=== PATIENT | female | born 1950 | race Caucasian/White ===

== ENCOUNTER 2020-11-05 14:32 | Emergency (ER) | payer MEDICARE ==
--- NOTE | 2020-11-05 15:18 | EDM.PDOC ---
ED HPI GENERAL MEDICAL PROBLEM - General Chief Complaint: Skin Complaint Stated Complaint: BEE BITE LEFT ARM Time Seen by Provider: 11/05/20 15:05 Source of Information: Reports: Patient History Limitations: Reports: No Limitations - History of Present Illness INITIAL COMMENTS - FREE TEXT/NARRATIVE: 70 yo female was stung on the L hand yesterday. Since then has had gradually mo re redness and swelling going now up proximally past her wrist. No hx of the same. Has been doing Benedryl 50 mg every 5 hrs and applying cold occasionally. No fever or chills. Some localized itching. Onset: Gradual Onset Date: 11/04/20 Duration: Day(s): (1+), Getting Worse Location: Reports: Upper Extremity, Left Quality: Reports: Dull, Other (itching) Severity: Mild Improves with: Reports: None Worsens with: Reports: Other (time) Context: Reports: Other (bee sting) Associated Symptoms: Reports: No Other Symptoms Treatments SENIOR SECURITY ARCHITECT: Reports: Other (see below) (Benedryl) - Related Data Allergies Allergy/AdvReac Type Severity Reaction Status Date / Time No Known Allergies Allergy Verified 11/05/20 15:04 Home Meds: Home Meds Ascorbic Acid [Vitamin C] 1,000 mg PO DAILY 06/01/20 [History] Calcium Carbonate [Calcium] 500 mg PO DAILY 06/01/20 [History] Cholecalciferol (Vitamin D3) [Vitamin D] 5,000 unit PO DAILY 06/01/20 [History] Ferrous Sulfate 324 mg PO DAILY 06/01/20 [History] Garlic 1,000 mg PO DAILY 06/01/20 [History] Magnesium 250 mg PO DAILY 06/01/20 [History] Raloxifene [Evista] 60 mg PO DAILY 06/01/20 [History] Turmeric 400 mg PO DAILY 11/05/20 [History] Past Medical History Musculoskeletal History: Reports: Other (See Below) Other Musculoskeletal History: right shoulder pain. left knee pain - Past Surgical History Musculoskeletal Surgical History: Reports: None ED ROS GENERAL - Review of Systems Review Of Systems: See Below Constitutional: Reports: No Symptoms HEENT: Reports: No Symptoms Respiratory: Reports: No Symptoms Cardiovascular: Reports: No Symptoms Skin: Reports: Pruritis, Erythema (and induration of L hand/wrist and distal forearm). Denies: Rash, Wound Neurological: Reports: No Symptoms ED EXAM, SKIN/RASH Exam: See Below Exam Limited By: No Limitations General Appearance: Alert, WD/WN, No Apparent Distress Eye Exam: Bilateral Eye: Normal Inspection Ears: Normal External Exam, Normal Canal, Hearing Grossly Normal Nose: Normal Inspection, No Blood Throat/Mouth: Normal Inspection, Normal Lips, Normal Oropharynx, Normal Voice, No Airway Compromise Head: Atraumatic, Normocephalic Neck: Normal Inspection Respiratory/Chest: No Respiratory Distress, Lungs Clear, Normal Breath Sounds, No Accessory Muscle Use Cardiovascular: Regular Rate, Rhythm, No Edema Extremities: Pedal Edema (L hand slightly swollen). No: No Pedal Edema Neurological: Alert, Oriented, CN II-XII Intact, Normal Cognition, No Motor/Sensory Deficits Psychiatric: Normal Affect, Normal Mood Skin: Warm, Dry, Intact, No Rash, Erythema (pinkish red L hand/wrist and distal forearm. ), Increased Warmth (slight increase in temp locally only). No: Lymphangitis, Zoster-Like Rash Location, Skin: Upper Extremity, Left Characteristics: Confluent, Erythematous Associated features: Warmth, Induration. No: Tenderness, Lymphangitis Course - Vital Signs Last Recorded V/S: Last Vital Signs Temp 36.3 C 11/05/20 15:07 Pulse 78 11/05/20 15:07 Resp 20 11/05/20 15:07 BP 129/89 11/05/20 15:07 Pulse Ox 100 11/05/20 15:07 - Orders/Labs/Meds Labs: Laboratory Tests 11/05/20 Range/Units 15:17 WBC 8.1 (4.5-11.0) K/uL RBC 4.69 (3.30-5.50) M/uL Hgb 14.0 (12.0-15.0) g/dL Hct 42.8 (36.0-48.0) % MCV 91 (80-98) fL MCH 30 (27-31) pg MCHC 33 (32-36) % Plt Count 223 (150-400) K/uL Departure - Departure Time of Disposition: 15:36 Disposition: Home, Self-Care 01 Condition: Good Clinical Impression: Local reaction to bee sting Qualifiers: Encounter type: initial encounter Injury intent: accidental or unintentional Qualified Code(s): T63.441A - Toxic effect of venom of bees, accidental (unintentional), initial encounter - Discharge Information *PRESCRIPTION DRUG MONITORING PROGRAM REVIEWED*: Not Applicable *COPY OF PRESCRIPTION DRUG MONITORING REPORT IN PATIENT DANIEL: Not Applicable Instructions: Bee, Wasp, or Hornet Sting, Adult Referrals: José Sigala MD [Primary Care Provider] - Forms: ED Department Discharge Additional Instructions: Diphenhydramine 50 mg every 4 hrs. Elevate above your heart. Cold compresses. Avoid scratching. Recheck for fever, temp > 100.2 F. Sepsis Event Note (ED) - Focused Exam Vital Signs: Vital Signs Temp Pulse Resp BP Pulse Ox 11/05/20 15:07 36.3 C 78 20 129/89 100
== END 2020-11-05 16:00 | disposition home or self-care (01) ==
LOC: JP.ED 14:32
DX: T63.441A Toxic effect of venom of bees, accidental (unintentional), initial encounter (principal); R60.0 Localized edema
CPT/HCPCS: 36415; 85027; 99283

== ENCOUNTER 2020-12-22 06:25 | Day surgery (SDC) | payer MEDICARE ==
[2020-12-22] MEDS ORDERED: Sodium Chloride 0.9% 1,000 ML IV SCH (07:00)
[2020-12-22] MEDS ORDERED: fentaNYL 100 MCG/2 ML SDV ONE (07:15)
[2020-12-22] MEDS ORDERED: Propofol 200 MG/20 ML SDV ONE (07:15)
[2020-12-22] MEDS ORDERED: Midazolam 1 MG/ML 2 ML SDV ONE (07:15)
--- NOTE | 2020-12-22 09:03 | OR ---
DATE OF PROCEDURE: 12/22/2020 SURGEON: Magnus Vernon MD PROCEDURE: Colonoscopy. FINDINGS: 1. Sigmoid colon polyp, approximately 5 mm, completely removed using cold biopsy forceps. 2. Diverticulosis, mild. COMPLICATIONS: None. MACHINE DESIGNER: None. ANESTHESIA: MAC. PREOPERATIVE DIAGNOSIS: Screening colonoscopy. POSTOPERATIVE DIAGNOSIS: Screening colonoscopy. RISKS: Risks, benefits, alternatives, and limitations including, but not limited to infection, bleeding, perforation, false positive, false negatives were explained to the patient and she wished to proceed. PROCEDURE IN DETAIL: The patient was placed in left lateral decubitus position. Digital rectal exam was performed without abnormality. Scope was introduced and advanced atraumatically to the ileocecal valve. A photo was taken of the appendiceal orifice. Scope was brought back to the ascending, transverse, descending colon, and retroflexed. The aforementioned polyp was identified and completely removed. The diverticulosis was described as mild, limited to sigmoid colon without evidence of diverticulitis or bleeding. No abnormalities on retroflexion. Greater than 8 minutes was spent removing the scope. The prep was acceptable, approximately 90% of the luminal surface could be seen. The patient tolerated the procedure well. Magnus Vernon MD /[id number]
== END 2020-12-22 10:00 | disposition home or self-care (01) ==
LOC: JP.SDS 06:25
PROVIDERS: ATTEND Surgery
DX: Z12.11 Encounter for screening for malignant neoplasm of colon (principal); K63.5 Polyp of colon; K57.30 Diverticulosis of large intestine without perforation or abscess without bleeding
CPT/HCPCS: 45380; J2250; J2704; J3010; J7030

== ENCOUNTER 2022-03-30 22:39 | Emergency (ER) | payer MEDICARE | END 2022-03-31 00:02 | disposition home or self-care (01) | LOC: JP.ED 22:39 | DX: H81.10 Benign paroxysmal vertigo, unspecified ear (principal); M81.0 Age-related osteoporosis without current pathological fracture; Z79.899 Other long term (current) drug therapy | CPT/HCPCS: 99283 ==

== ENCOUNTER 2024-04-25 17:52 | Emergency (ER) | payer MEDICARE ==
[2024-04-25 18:29] LABS: BASOPHILS ABSOLUTE AUTO 0.04 K/uL (0.00-0.10); BASOPHILS PERCENT AUTO 0.2 % (0.1-1.3); EOSINOPHILS ABSOLUTE AUTO 0.07 K/uL (0.00-0.40); EOSINOPHILS PERCENT AUTO 0.4 % (0.0-5.4); HEMATOCRIT 43.5 % (34.3-46.0); HEMOGLOBIN 14.6 g/dL (11.2-15.5); IMMATURE GRAN ABSOLUTE AUTO 0.08 K/uL (0.00-0.23); IMMATURE GRAN PERCENT AUTO 0.5 % (0.0-0.7); LYMPHOCYTES ABSOLUTE AUTO 2.11 K/uL (0.8-3.3); LYMPHOCYTES PERCENT AUTO 12.7 % (11.4-47.7); MEAN CORPUSCULAR HEMOGLOBIN 31.3 pg (31.6-35.5); MEAN CORPUSCULAR HGB CONC 33.6 g/dL (31.6-35.5); MEAN CORPUSCULAR VOLUME 93.1 fL (81.4-99.0); MONOCYTES ABSOLUTE AUTO 1.12 K/uL (0.20-0.90); MONOCYTES PERCENT AUTO 6.7 % (3.3-12.6); NEUTROPHILS ABSOLUTE AUTO 13.19 K/uL (1.0-7.6); NEUTROPHILS PERCENT AUTO 79.5 % (40.0-78.1); PLATELET COUNT,PLT 238 K/uL (130-375); RED BLOOD CELL COUNT 4.67 M/uL (3.77-5.24); WHITE BLOOD CELL COUNT,WBC 16.6 K/uL (3.2-11.0)
[2024-04-25 18:50] LABS: ALANINE AMINOTRANSFERASE,ALT 33 U/L (12-78); ALBUMIN 3.9 g/dL (3.4-5.0); ALKALINE PHOSPHATASE 79 U/L (46-116); ASPARTATE AMNIOTRANSFERASE,AST 24 U/L (15-37); BILIRUBIN TOTAL 0.3 mg/dL (0.2-1.0); BLOOD UREA NITROGEN,BUN 21 mg/dL (7-18); CARBON DIOXIDE,CO2 25 mmol/L (21-32); CHLORIDE,CL 102 mmol/L (100-108); EST CRCL DRUG DOSING (CG) 49.45 mL/min; ESTIMATED GFR 60 mL/min (>60); GLUCOSE RANDOM 109 mg/dL (74-106); POTASSIUM,K 3.8 mmol/L (3.6-5.2); PROTEIN TOTAL,TP 7.7 g/dL (6.4-8.2); SODIUM,NA 138 mmol/L (140-148)
[2024-04-25 18:52] LABS: ANION GAP 14.8 mmol/L (5.0-14.0)
[2024-04-25] MEDS: Ondansetron 4 MG/2 ML SDV IVPUSH ONE (19:00)
[2024-04-25] MEDS: Sodium Chloride 0.9% 1,000 ML IV STA (19:00)
== END 2024-04-25 20:09 | disposition home or self-care (01) ==
LOC: JP.ED 17:52
DX: K52.9 Noninfective gastroenteritis and colitis, unspecified (principal); Z86.16 Personal history of COVID-19; Z90.710 Acquired absence of both cervix and uterus; Z79.899 Other long term (current) drug therapy
CPT/HCPCS: 36415; 80053; 85025; 93005; 96361; 96374; 99285; J2405; J7030

== ENCOUNTER 2024-05-27 09:05 | Inpatient (IN) | payer MEDICARE ==
[2024-05-27] MEDS: Lactated Ringers 1,000 ML IV SCH (09:42)
[2024-05-27] MEDS: Nozin Nasal Sanitizer NASBOTH SCH (09:43)
[2024-05-27 10:27] LABS: BASOPHILS PERCENT AUTO 0.4 % (0.1-1.3); EOSINOPHILS ABSOLUTE AUTO 0.08 K/uL (0.00-0.40); EOSINOPHILS PERCENT AUTO 1.5 % (0.0-5.4); HEMATOCRIT 37.6 % (34.3-46.0); HEMOGLOBIN 12.5 g/dL (11.2-15.5); IMMATURE GRAN PERCENT AUTO 0.2 % (0.0-0.7); LYMPHOCYTES ABSOLUTE AUTO 2.12 K/uL (0.8-3.3); LYMPHOCYTES PERCENT AUTO 40.2 % (11.4-47.7); MEAN CORPUSCULAR HEMOGLOBIN 30.9 pg (31.6-35.5); MEAN CORPUSCULAR HGB CONC 33.2 g/dL (31.6-35.5); MEAN CORPUSCULAR VOLUME 92.8 fL (81.4-99.0); MONOCYTES ABSOLUTE AUTO 0.42 K/uL (0.20-0.90); NEUTROPHILS ABSOLUTE AUTO 2.62 K/uL (1.0-7.6); NEUTROPHILS PERCENT AUTO 49.7 % (40.0-78.1); PLATELET COUNT,PLT 200 K/uL (130-375); RED BLOOD CELL COUNT 4.05 M/uL (3.77-5.24); WHITE BLOOD CELL COUNT,WBC 5.3 K/uL (3.2-11.0)
[2024-05-27 10:31] LABS: BASOPHILS ABSOLUTE AUTO 0.02 K/uL (0.00-0.10); IMMATURE GRAN ABSOLUTE AUTO 0.01 K/uL (0.00-0.23)
[2024-05-27 10:41] LABS: ANION GAP 8.3 mmol/L (5.0-14.0); CALCIUM 8.7 mg/dL (8.5-10.1); CREATININE 0.7 mg/dL (0.6-1.0); EST CRCL DRUG DOSING (CG) 69.33 mL/min; POTASSIUM,K 3.8 mmol/L (3.6-5.2)
[2024-05-27] MEDS ORDERED: fentaNYL 100 MCG/2 ML SDV ONE (11:08)
[2024-05-27] MEDS ORDERED: Propofol 200 MG/20 ML SDV ONE ×2 (11:08→15:18)
[2024-05-27] MEDS ORDERED: Midazolam 1 MG/ML 2 ML SDV ONE (11:08)
[2024-05-27] MEDS ORDERED: Magnesium Hydroxide 400 MG/5 ML Susp 30 ML Cup PO PRN (12:34)
[2024-05-27] MEDS ORDERED: Morphine 2 MG/ML SYRINGE IVPUSH PRN (12:34)
[2024-05-27] MEDS ORDERED: Ondansetron 4 MG/2 ML SDV IVPUSH PRN (12:34)
[2024-05-27] MEDS: ceFAZolin 2 GM in Premix Bag 1 BAG IV ONE (14:50)
[2024-05-27] MEDS: Tranexamic Acid 820 MG in Sodium Chloride 0.9% 50 ML IV ONE (15:15)
[2024-05-27] MEDS: Bupivacaine 0.5% 50 ML MDV ONE (15:36)
[2024-05-27] MEDS: Acetaminophen 325 MG Tab PO SCH (17:31)
[2024-05-27] MEDS: oxyCODONE 5 MG Tab PO PRN (17:54)
[2024-05-27] MEDS: Sodium Chloride 0.9% 1,000 ML IV SCH (17:55)
[2024-05-27] MEDS: Ketorolac 30 MG/ML SDV IVPUSH PRN (18:16)
[2024-05-27] MEDS: Ondansetron 4 MG Tab.DIS PO PRN (20:54)
[2024-05-27] MEDS ORDERED: Nozin Nasal Sanitizer NASBOTH SCH (21:00)
[2024-05-27] MEDS: ceFAZolin 2 GM in Premix Bag 1 BAG IV SCH (22:28)
[2024-05-28] MEDS: oxyCODONE 5 MG Tab PO PRN (00:28)
[2024-05-28] MEDS: Cyanocobalamin (Vitamin B12) 1,000 MCG Tab PO SCH (08:07)
[2024-05-28] MEDS: Vitamin B Complex Tab PO SCH (08:07)
[2024-05-28] MEDS: Multivitamins with Iron/Calcium/Folic Acid/Minerals Tab PO SCH (08:07)
[2024-05-28] MEDS: Aspirin 325 MG Tab.EC PO SCH (08:07)
[2024-05-28] MEDS: Magnesium Oxide 400 MG Tab PO SCH (08:07)
[2024-05-28] MEDS: Raloxifene 60 MG Tab PO SCH (08:07)
[2024-05-28] MEDS: Calcium Carbonate 500 MG Tab.Chew PO SCH (08:07)
[2024-05-28] MEDS ORDERED: Non-Formulary Medication 1 Each (Glucosam/Chond-Msm1/C/Mang/Bor [Glucosa-Chond-Msm Complex PO SCH (09:00)
[2024-05-28] MEDS ORDERED: Non-Formulary Medication 1 Each (Turmeric [Turmeric] 400 MG Capsule) PO SCH (09:00)
[2024-05-28] MEDS: Diphtheria,Pertussis(Acell),Tetanus Vaccine 0.5 ML Syringe IM ONE (09:44)
[2024-05-28] MEDS: Sodium Chloride 0.9% 500 ML IV ONE (09:50)
[2024-05-28 10:01] LABS: HEMATOCRIT 33.6 % (34.3-46.0); HEMOGLOBIN 11.1 g/dL (11.2-15.5)
[2024-05-28] MEDS: Docusate Sodium 100 MG Cap PO PRN (23:03)
== END 2024-05-29 10:44 | disposition home or self-care (01) | DRG 470 ==
LOC: JP.SDS 09:05 → JP.MS 12:34 → JP.SDS 05-28 11:33
PROVIDERS: ADMIT Specialist; ATTEND Specialist
PROC: 0SRD0J9 Replacement of Left Knee Joint with Synthetic Substitute, Cemented, Open Approach (ICD-10-PCS; principal; 2024-05-27 10:45)
DX: M17.12 Unilateral primary osteoarthritis, left knee (principal); M81.0 Age-related osteoporosis without current pathological fracture; E78.00 Pure hypercholesterolemia, unspecified; E55.9 Vitamin D deficiency, unspecified; I95.9 Hypotension, unspecified; Z90.722 Acquired absence of ovaries, bilateral; Z90.710 Acquired absence of both cervix and uterus; Z79.899 Other long term (current) drug therapy
CPT/HCPCS: 01400-QZ; 36415; 73560-26-LT; 73560-LT; 80048; 85014; 85018; 85025; 97110-GP; 97116-GP; 97162-GP; 97165-GO; 97530-GP; 97535-GO; A9270-GY; C1713; C1776; J0665; J0690; J1885; J2250; J2704; J3010; J7030; J7120; Q0162